=== PATIENT | female | born 1955 | race Caucasian/White ===

== ENCOUNTER 2025-01-14 09:12 | Inpatient (IN) | payer MEDICARE, MEDICAID ==
[~2025-01-14] VITALS: Ht 157.5 cm; Wt 64.0 kg
[2025-01-14] MEDS: ACETAMINOPHEN 325MG TABLET PO STA (09:18)
[2025-01-14] MEDS: SODIUM CHLORIDE 0.9% 1,000 ML IV ONE ×2 (09:30→09:37)
[2025-01-14] MEDS ORDERED: PIPERACILLIN/TAZO 3.375G/50ML 50 ML IV ONE (09:30)
[2025-01-14 09:37] LABS: HEMATOCRIT. 35.2 % (36.0-48.0); HEMOGLOBIN. 11.6 g/dL (12.0-16.0); MEAN CORPUSCULAR HEMOGLOBIN 30.3 pg (28.0-32.0); MEAN CORPUSCULAR HGB CONC 32.9 g/dL (31.0-37.0); MEAN CORPUSCULAR VOLUME 92.2 fL (81.0-99.0); MEAN PLATELET VOLUME 9.2 fl (7.4-10.4); PLATELET 390 x1000/uL (130-400); RED BLOOD CELL COUNT 3.82 mill/uL (4.2-5.4); RED CELL DISTRIBUTION WIDTH 15.9 % (11.6-14.6); WHITE BLOOD COUNT 25.8 x1000/uL (4.5-11.0)
[2025-01-14 09:40] LABS: DIFFERENTIAL COMMENT 1
[2025-01-14 09:43] LABS: CHLORIDE 102 mEq/L (98-107); POTASSIUM 2.9 mEq/L (3.5-5.1); SODIUM 137 mEq/L (136-145)
[2025-01-14] MEDS: VANCOMYCIN 1G PREMIX 200 ML IV ONE (09:43)
[2025-01-14 09:44] LABS: CARBON DIOXIDE 25 mEq/L (21-32)
[2025-01-14 09:45] LABS: CALCIUM 8.6 mg/dL (8.7-10.4)
[2025-01-14 09:50] LABS: CREATININE 0.7 mg/dL (0.6-1.0); GLUCOSE 146 mg/dL (70-105); UREA NITROGEN BLOOD 18 mg/dL (9-23)
[2025-01-14 09:51] LABS: ALANINE AMINOTRANSFERASE 86 IU/L (10-49); ALBUMIN 3.3 g/dL (3.2-4.8); ASPARTATE AMINOTRANSFERASE 81 IU/L (<34)
[2025-01-14 09:52] LABS: BILIRUBIN TOTAL 2.8 mg/dL (0.1-1.0)
[2025-01-14 10:07] LABS: TROPONIN I HIGH SENSITIVITY 5 ng/L (3.0-34)
[2025-01-14 10:12] LABS: INR 1.1; PROTHROMBIN TIME 11.9 sec (9.6-11.0)
[2025-01-14 10:13] LABS: ANISOCYTOSIS 1+; PLATELET ESTIMATE NORMAL
[2025-01-14] MEDS: LEVOFLOXACIN 500MG PREMIX 100 ML IV ONE (11:00)
[2025-01-14] MEDS: KCL 20MEQ/100ML PREMIX 100 ML IV ONE (13:20)
[2025-01-14] MEDS: POTASSIUM CHLORIDE 20MEQ/PACKET PO ONE (13:22)
[2025-01-14] MEDS ORDERED: DEXTROSE 50% WATER 50ML SYRINGE IV PRN (15:30)
[2025-01-14] MEDS ORDERED: MORPHINE SULFATE 2 MG/ML INJ (NOT FOR IM USE) IV PRN (15:30)
[2025-01-14] MEDS ORDERED: ACETAMINOPHEN 325MG TABLET PO PRN (15:30)
[2025-01-14] MEDS ORDERED: IPRATROPIUM/ALBUTEROL 0.5-3(2.5)MG/3ML NEB NEB PRN (15:30)
[2025-01-14] MEDS ORDERED: SODIUM CHLORIDE 0.9% 1,000 ML IV SCH (15:30)
[2025-01-14] MEDS ORDERED: ONDANSETRON HCL 4MG/2ML INJ IV PRN (15:30)
[2025-01-14 15:32] VITALS: BP 144/93; PULSE 104; RESP 16; TEMP 36.3; O2SAT 96
[2025-01-14] MEDS ORDERED: HYDROCODONE/ACETAMINOPHEN 5/325MG TABLET PO PRN (15:40)
[2025-01-14] MEDS: BLOOD SUGAR DIAGNOSTIC STRIP TEST SCH (17:10)
[2025-01-14 18:22] VITALS: BP 128/59; PULSE 82; RESP 18; TEMP 36.5
[2025-01-14] MEDS: INSULIN LISPRO 100 UNITS/ML SUBCUT SCH (19:18)
[2025-01-14 20:00] VITALS: BP 117/54; PULSE 72; RESP 18; TEMP 36.4; O2SAT 98
[2025-01-14] MEDS: VANCOMYCIN 500MG PREMIX 100 ML IV SCH (21:00)
[2025-01-14] MEDS: DEXT 5%/0.9% NACL 1,000 ML IV SCH (22:12)
[2025-01-15] VITALS: BP 105/50; PULSE 67; RESP 19; TEMP 36.4; O2SAT 98
[2025-01-15 00:33] LABS: TROPONIN I HIGH SENSITIVITY 5 ng/L (3.0-34)
[2025-01-15 04:00] VITALS: BP 111/50; PULSE 64; RESP 20; TEMP 36.3; O2SAT 100
[2025-01-15] MEDS: AZTREONAM 1 G in DEXTROSE 5% WATER 50 ML IV SCH (06:04)
[2025-01-15] MEDS: METRONIDAZOLE 500 MG PREMIX 100 ML IV SCH (06:04)
[2025-01-15 07:12] LABS: CHLORIDE 103 mEq/L (98-107); POTASSIUM 2.9 mEq/L (3.5-5.1); SODIUM 135 mEq/L (136-145)
[2025-01-15 07:15] LABS: BASOPHILS % 0.2 % (0.0-2.0); HEMATOCRIT. 29.1 % (36.0-48.0); HEMOGLOBIN. 9.8 g/dL (12.0-16.0); LYMPHOCYTES % 11.7 % (20.0-50.0); MEAN CORPUSCULAR HEMOGLOBIN 31.2 pg (28.0-32.0); MEAN CORPUSCULAR HGB CONC 33.7 g/dL (31.0-37.0); MEAN CORPUSCULAR VOLUME 92.5 fL (81.0-99.0); MEAN PLATELET VOLUME 9.7 fl (7.4-10.4); MONOCYTES % 6.2 % (2.0-8.0); NEUTROPHILS % 81.9 % (40.0-76.0); PLATELET 324 x1000/uL (130-400); RED BLOOD CELL COUNT 3.15 mill/uL (4.2-5.4); WHITE BLOOD COUNT 19.9 x1000/uL (4.5-11.0)
[2025-01-15 07:16] LABS: CALCIUM 8.2 mg/dL (8.7-10.4); CARBON DIOXIDE 21 mEq/L (21-32); TROPONIN I HIGH SENSITIVITY 5 ng/L (3.0-34)
[2025-01-15 07:21] LABS: CREATININE 0.8 mg/dL (0.6-1.0); GLUCOSE 211 mg/dL (70-105); UREA NITROGEN BLOOD 26 mg/dL (9-23)
[2025-01-15 07:22] LABS: ALANINE AMINOTRANSFERASE 59 IU/L (10-49); ALBUMIN 3.1 g/dL (3.2-4.8)
[2025-01-15 07:23] LABS: ASPARTATE AMINOTRANSFERASE 46 IU/L (<34); BILIRUBIN DIRECT 1.7 mg/dL (<=3.0); BILIRUBIN TOTAL 2.2 mg/dL (0.1-1.0); PROTEIN TOTAL 6.3 g/dL (6.0-8.3)
[2025-01-15 08:00] VITALS: BP 110/57; PULSE 70; RESP 15; TEMP 36; O2SAT 97
[2025-01-15] MEDS: ENOXAPARIN 40MG/0.4ML SYR SUBCUT SCH (10:30)
[2025-01-15] MEDS: PANTOPRAZOLE SODIUM 40 MG/VIAL IV SCH (10:33)
[2025-01-15 12:00] VITALS: BP 126/58; PULSE 70; RESP 17; TEMP 36.8; O2SAT 98
[2025-01-15] MEDS: AZTREONAM 2GM in DEXTROSE 5% WATER 100ML IV SCH (12:12)
[2025-01-15 16:00] VITALS: BP 140/66; PULSE 68; RESP 18; TEMP 36.6; O2SAT 99
[2025-01-15 20:00] VITALS: BP 156/70; PULSE 71; RESP 19; TEMP 35.7; O2SAT 100
[2025-01-16] VITALS: BP 137/58; PULSE 72; RESP 18; TEMP 35.5; O2SAT 99
[2025-01-16 04:00] VITALS: BP 133/70; PULSE 60; RESP 18; TEMP 36.1; O2SAT 98
[2025-01-16 07:26] LABS: BASOPHILS % 0.4 % (0.0-2.0); EOSINOPHILS % 1.7 % (0.0-5.0); HEMATOCRIT. 30.1 % (36.0-48.0); HEMOGLOBIN. 10.1 g/dL (12.0-16.0); LYMPHOCYTES % 22.6 % (20.0-50.0); MEAN CORPUSCULAR HEMOGLOBIN 31.5 pg (28.0-32.0); MEAN CORPUSCULAR HGB CONC 33.6 g/dL (31.0-37.0); MEAN CORPUSCULAR VOLUME 93.8 fL (81.0-99.0); MEAN PLATELET VOLUME 9.7 fl (7.4-10.4); NEUTROPHILS % 68.3 % (40.0-76.0); PLATELET 379 x1000/uL (130-400); RED BLOOD CELL COUNT 3.21 mill/uL (4.2-5.4); RED CELL DISTRIBUTION WIDTH 16.1 % (11.6-14.6); WHITE BLOOD COUNT 9.7 x1000/uL (4.5-11.0)
[2025-01-16 07:48] LABS: HEPATITIS B SURFACE AB < 3.1 mIU/mL (<10)
[2025-01-16 07:50] LABS: CARBON DIOXIDE 21 mEq/L (21-32); CHLORIDE 104 mEq/L (98-107); POTASSIUM 3.2 mEq/L (3.5-5.1); SODIUM 134 mEq/L (136-145)
[2025-01-16 07:51] LABS: CALCIUM 8.1 mg/dL (8.7-10.4)
[2025-01-16 07:55] LABS: CREATININE 0.7 mg/dL (0.6-1.0); GLUCOSE 191 mg/dL (70-105)
[2025-01-16 07:56] LABS: UREA NITROGEN BLOOD 22 mg/dL (9-23)
[2025-01-16 07:57] LABS: ALANINE AMINOTRANSFERASE 54 IU/L (10-49); ASPARTATE AMINOTRANSFERASE 48 IU/L (<34)
[2025-01-16 07:58] LABS: BILIRUBIN DIRECT 1.3 mg/dL (<=3.0); BILIRUBIN TOTAL 1.6 mg/dL (0.1-1.0); PHOSPHORUS 2.8 mg/dL (2.5-4.9); PROTEIN TOTAL 6.2 g/dL (6.0-8.3)
[2025-01-16 08:00] VITALS: BP 155/70; PULSE 63; RESP 17; TEMP 36.4; O2SAT 99
[2025-01-16 08:22] LABS: HEPATITIS C AB NON REACTIVE (Neg) (Negative)
[2025-01-16 12:00] VITALS: BP 166/74; PULSE 66; RESP 16; TEMP 36.6; O2SAT 99
[2025-01-16] MEDS: POTASSIUM CHLORIDE 20MEQ TABLET SR PO SCH (13:08)
[2025-01-16] MEDS: CLONIDINE 0.1MG TABLET PO PRN (13:09)
[2025-01-16 16:00] VITALS: BP 164/79; PULSE 61; RESP 17; TEMP 36.4; O2SAT 99
[2025-01-16 20:00] VITALS: BP 180/91; PULSE 75; RESP 18; TEMP 36.2; O2SAT 99
[2025-01-16] MEDS ORDERED: IOHEXOL-300 100 ML BOTTLE ONE (23:33)
[2025-01-17] VITALS: BP 154/68; PULSE 64; RESP 19; TEMP 36; O2SAT 100
[2025-01-17 04:00] VITALS: BP 161/72; PULSE 62; RESP 18; TEMP 36.1; O2SAT 100
[2025-01-17 04:07] LABS: ALPHA FETOPROTEIN TUMOR MARKER < 1.8 ng/mL (0.0-9.2); CANCER ANTIGEN 125 75.4 U/mL (0.0-38.1); CARCINOEMBRYONIC AG - SEND OUT 5.5 ng/mL (0.0-4.7)
[2025-01-17 04:49] LABS: CHLORIDE 109 mEq/L (98-107); POTASSIUM 3.3 mEq/L (3.5-5.1); SODIUM 136 mEq/L (136-145)
[2025-01-17 04:50] LABS: CARBON DIOXIDE 20 mEq/L (21-32)
[2025-01-17 04:55] LABS: CREATININE 0.6 mg/dL (0.6-1.0); GLUCOSE 175 mg/dL (70-105); UREA NITROGEN BLOOD 16 mg/dL (9-23)
[2025-01-17 04:57] LABS: ALANINE AMINOTRANSFERASE 45 IU/L (10-49); ALBUMIN 2.9 g/dL (3.2-4.8); ASPARTATE AMINOTRANSFERASE 39 IU/L (<34); BILIRUBIN TOTAL 1.3 mg/dL (0.1-1.0)
[2025-01-17 04:58] LABS: PROTEIN TOTAL 5.9 g/dL (6.0-8.3)
[2025-01-17 05:00] LABS: AMMONIA < 17 uMol/L (<32)
[2025-01-17 06:16] LABS: BASOPHILS % 0.6 % (0.0-2.0); EOSINOPHILS % 3.3 % (0.0-5.0); HEMATOCRIT. 31.1 % (36.0-48.0); HEMOGLOBIN. 10.2 g/dL (12.0-16.0); LYMPHOCYTES % 26.6 % (20.0-50.0); MEAN CORPUSCULAR HEMOGLOBIN 30.4 pg (28.0-32.0); MEAN CORPUSCULAR HGB CONC 32.7 g/dL (31.0-37.0); MEAN PLATELET VOLUME 9.2 fl (7.4-10.4); MONOCYTES % 6.4 % (2.0-8.0); NEUTROPHILS % 63.1 % (40.0-76.0); PLATELET 396 x1000/uL (130-400); RED BLOOD CELL COUNT 3.34 mill/uL (4.2-5.4); RED CELL DISTRIBUTION WIDTH 15.7 % (11.6-14.6); WHITE BLOOD COUNT 7.4 x1000/uL (4.5-11.0)
[2025-01-17 08:00] VITALS: BP 164/72; PULSE 59; RESP 18; TEMP 36.3; O2SAT 99
[2025-01-17] MEDS: POLYETHYLENE GLYCOL 3350 (17GM) 1 DOSE PACK PO SCH (09:17)
[2025-01-17 12:00] VITALS: BP 159/65; PULSE 66; RESP 15; TEMP 36.2; O2SAT 98
[2025-01-17] MEDS ORDERED: MORPHINE SULFATE 4 MG/ML INJ (FOR IV/IM USE) IV PRN (15:27)
[2025-01-17 16:00] VITALS: BP 169/78; PULSE 66; RESP 18; TEMP 36.3; O2SAT 99
[2025-01-17] MEDS: METRONIDAZOLE 500MG TABLET PO SCH (16:38)
[2025-01-17 20:00] VITALS: BP 180/67; PULSE 82; RESP 19; TEMP 36.4; O2SAT 100
[2025-01-18] VITALS (7 sets, daily range): BP systolic 148–175; BP diastolic 67–91; PULSE 58–73; RESP 15–19; TEMP 36.1–36.5; O2SAT 96–100
[2025-01-18] MEDS: PANTOPRAZOLE 40MG DR TABLET PO SCH (08:59)
[2025-01-18 09:07] LABS: ANTI-DNA DOUBLE STRANDED QUANT < 1 IU/mL (0-9); ANTI-NUCLEAR ANTIBODIES DIRECT Positive (Negative)
[2025-01-18] MEDS ORDERED: MOXI400T31 PO (11:02)
[2025-01-18] MEDS ORDERED: LINE600T11 MT (11:02)
[2025-01-18 11:42] LABS: BASOPHILS % 0.5 % (0.0-2.0); EOSINOPHILS % 3.7 % (0.0-5.0); HEMATOCRIT. 32.6 % (36.0-48.0); HEMOGLOBIN. 10.9 g/dL (12.0-16.0); LYMPHOCYTES % 25.6 % (20.0-50.0); MEAN CORPUSCULAR HEMOGLOBIN 30.9 pg (28.0-32.0); MEAN CORPUSCULAR HGB CONC 33.4 g/dL (31.0-37.0); MEAN CORPUSCULAR VOLUME 92.5 fL (81.0-99.0); MEAN PLATELET VOLUME 9.1 fl (7.4-10.4); MONOCYTES % 7.5 % (2.0-8.0); NEUTROPHILS % 62.7 % (40.0-76.0); PLATELET 440 x1000/uL (130-400); RED BLOOD CELL COUNT 3.52 mill/uL (4.2-5.4); RED CELL DISTRIBUTION WIDTH 15.4 % (11.6-14.6); WHITE BLOOD COUNT 6.2 x1000/uL (4.5-11.0)
[2025-01-18 11:48] LABS: CHLORIDE 103 mEq/L (98-107); SODIUM 133 mEq/L (136-145)
[2025-01-18 11:49] LABS: CALCIUM 7.6 mg/dL (8.7-10.4); CARBON DIOXIDE 22 mEq/L (21-32)
[2025-01-18 11:54] LABS: CREATININE 0.7 mg/dL (0.6-1.0); GLUCOSE 305 mg/dL (70-105); UREA NITROGEN BLOOD 14 mg/dL (9-23)
[2025-01-18 11:56] LABS: ALANINE AMINOTRANSFERASE 38 IU/L (10-49); ALBUMIN 3.1 g/dL (3.2-4.8); ASPARTATE AMINOTRANSFERASE 39 IU/L (<34)
[2025-01-18 11:57] LABS: BILIRUBIN TOTAL 1.3 mg/dL (0.1-1.0); PROTEIN TOTAL 6.3 g/dL (6.0-8.3)
[2025-01-18 12:10] LABS: POTASSIUM 2.7 mEq/L (3.5-5.1)
[2025-01-18] MEDS: POTASSIUM CHLORIDE 20MEQ TABLET SR PO SCH (13:39)
[2025-01-18] MEDS: HYDRALAZINE 20MG/ML VIAL IV PRN (21:11)
[2025-01-19] MEDS ORDERED: AMLODIPINE 5MG TABLET PO SCH (09:00)
[2025-01-20 13:07] LABS: SACCHAROMYCES CEREVISIAE IGG 118.7 Units (0.0-24.9); SACCHAROMYCES CEREVISIAE IGM 205.4 Units (0.0-24.9)
[2025-01-20 17:07] LABS: ACTIN (SMOOTH MUSCLE) ANTIBODY 8 Units (0-19); MITOCHONDRIAL M2 AB <20.0 Units (0.0-20.0)
== END 2025-01-18 22:15 | DRG 871 ==
LOC: ER 09:12 → 8WST 13:36 → EDBEDREQ 13:40 → EDBEDREQTM 13:40 → ENRESERV 13:56 → 6WST 15:17
PROVIDERS: ADMIT Internal Medicine; ATTEND Internal Medicine
DX: A40.0 Sepsis due to streptococcus, group A (principal); G92.8 Other toxic encephalopathy; L89.153 Pressure ulcer of sacral region, stage 3; K81.0 Acute cholecystitis; E87.1 Hypo-osmolality and hyponatremia; R18.8 Other ascites; R74.8 Abnormal levels of other serum enzymes; I10 Essential (primary) hypertension; K62.89 Other specified diseases of anus and rectum; E80.6 Other disorders of bilirubin metabolism; R63.4 Abnormal weight loss; E87.6 Hypokalemia; F32.A Depression, unspecified; E83.51 Hypocalcemia; E11.65 Type 2 diabetes mellitus with hyperglycemia; K58.9 Irritable bowel syndrome, unspecified; R16.0 Hepatomegaly, not elsewhere classified; Z88.6 Allergy status to analgesic agent; Z88.0 Allergy status to penicillin; I69.398 Other sequelae of cerebral infarction; Z68.25 Body mass index [BMI] 25.0-25.9, adult
CPT/HCPCS: 36415; 71045; 74177; 76700; 78227; 80048; 80053; 80076; 80202; 82105; 82140; 82378; 82962; 83036; 83516; 83605; 83735; 84100; 84145; 84484; 85025; 86038; 86225; 86256; 86301; 86304; 86671; 86705; 86706; 87077; 87186; 93005; 93306; 93970; 99291; A4606; A9537; J0360; J1650; J1815; J1956; J2470; J2543; J3370; J3480; J3490; J7030; J7042; J7060; Q9967